=== PATIENT | female | born 2000 | race Caucasian/White ===

== ENCOUNTER → 2021-12-02 | Emergency (ER) | payer OTHER ==
[~2021-12-02] VITALS: Ht 160 cm; Wt 50.3 kg
[~2021-12-02] MED LIST: BENZ100C92 PO; CETI1TAB2 PO; PHEDM120 PO
[2021-12-02 20:51] VITALS: BP_SYST 112
--- NOTE | 2021-12-02 22:05 | NUR ---
Pt brought by self, A&Ox4, pt presents to ER with mild cough ,rib pain, pt states she had a covid test recently and test was negative, afebrile, respirations even and unlabored, will cont to monitor.
--- NOTE | 2021-12-02 22:30 | NUR ---
Pt A&Ox4, pt c/o mild cough ,rib pain, pt states she had a covid test recently and test was negative, afebrile, respirations even and unlabored, will cont to monitor., VS stable and care resumed
[2021-12-03 00:49] VITALS: BP_SYST 121
== END | disposition home or self-care (01) ==
LOC: SED 19:12
DX: J06.9 Acute upper respiratory infection, unspecified (principal)
CPT/HCPCS: 71045; 99283